=== PATIENT | female | born 1990 | race Caucasian/White ===

== ENCOUNTER 2018-05-21 09:05 | Inpatient (IN) | payer BC, OTHER ==
[2018-05-21] MEDS ORDERED: MEPIVACAINE HCL 1% MPF 30 ML/VIAL SOL INFIL PRN (15:14)
[2018-05-21] MEDS ORDERED: METHYLERGONOVINE MALEATE 0.2 MG/ML SOL IM PRN (15:14)
[2018-05-21] MEDS ORDERED: LACTATED RINGERS 1,000 ML IV PRN (15:14)
[2018-05-21] MEDS ORDERED: OXYTOCIN 10000 MU/ML SOL IM PRN (15:14)
[2018-05-21] MEDS ORDERED: FENTANYL 100MCG/2ML SOL IV PRN (15:14)
[2018-05-21] MEDS ORDERED: CARBOPROST 250 MCG/ML SOL IM PRN (15:14)
[2018-05-21] MEDS ORDERED: SODIUM CHLORIDE 0.9% FLUSH 10 ML SOL IV PRN (15:14)
[2018-05-21] MEDS: SODIUM CHLORIDE 0.9% FLUSH 10 ML SOL IV SCH ×2 (16:00→23:40)
[2018-05-21] MEDS ORDERED: SODIUM CHLORIDE 0.9% 50 ML 25 ML IV PRN (18:30)
[2018-05-21] MEDS ORDERED: AMPICILLIN 1 GM PDS 2 GM in SODIUM CHLORIDE 0.9% 100 ML 100 ML IV SCH (18:30)
[2018-05-21] MEDS ORDERED: AMPICILLIN 1 GM PDS ONE ×2 (18:30→22:41)
[2018-05-21 18:59] LABS: BASOPHILS % (AUTO) 1 % (0-3); EOSINOPHILS % (AUTO) 1 % (0-9); HEMATOCRIT 35 % (35-47); HEMOGLOBIN 12.2 gm/dl (12.0-15.5); LYMPHOCYTES % (AUTO) 18.7 % (10-50); MEAN CORPUSCULAR HEMOGLOBIN 30.2 pg (27.0-32.0); MEAN CORPUSCULAR HGB CONC 34.8 gm/dl (32.0-36.0); MEAN CORPUSCULAR VOLUME 87 fL (81-99); MONOCYTES % (AUTO) 7.7 % (0-12); NEUTROPHILS % (AUTO) 72.3 % (37-80)
[2018-05-21] MEDS: AMPICILLIN 1 GM PDS 1 GM in SODIUM CHLORIDE 0.9% 100 ML 100 ML IV SCH (22:49)
[2018-05-22] MEDS ORDERED: AMPICILLIN 1 GM PDS ONE ×4 (02:12→10:52)
[2018-05-22] MEDS: AMPICILLIN 1 GM PDS 1 GM in SODIUM CHLORIDE 0.9% 100 ML 100 ML IV SCH ×4 (02:45→19:42)
[2018-05-22] MEDS ORDERED: TERBUTALINE SULFATE 1 MG/ML SOL SC PRN (03:03)
[2018-05-22] MEDS ORDERED: OXYTOCIN 10000 MU/ML 20,000 MU in LACTATED RINGERS 1,000 ML IV SCH (03:15)
[2018-05-22] MEDS: LACTATED RINGERS 1,000 ML IV SCH ×4 (04:40→19:43)
[2018-05-22] MEDS ORDERED: EPHEDRINE SULFATE 50 MG/ML SOL IV PRN (09:13)
[2018-05-22] MEDS ORDERED: DIPHENHYDRAMINE 50 MG/ML SOL IV PRN (09:13)
[2018-05-22] MEDS ORDERED: NALBUPHINE HCL 20 MG/ML SOL IV PRN (09:13)
[2018-05-22] MEDS ORDERED: NALOXONE HYDROCHLORIDE 0.4 MG/ML SOL IV PRN (09:13)
[2018-05-22] MEDS ORDERED: BISACODYL 10 MG SUP PR PRN (12:02)
[2018-05-22] MEDS ORDERED: FLEET ENEMA PR PRN (12:02)
[2018-05-22] MEDS ORDERED: TEMAZEPAM 15MG 15 MG CAP PO PRN (12:02)
[2018-05-22] MEDS ORDERED: APAP/HYDROCODONE 1 EACH TABLET PO PRN (12:02)
[2018-05-22] MEDS ORDERED: BENZOCAINE/MENTHOL 1 SPR TOP PRN (12:02)
[2018-05-22] MEDS ORDERED: WITCH HAZEL 1 EA PAD TOP PRN (12:02)
[2018-05-22] MEDS ORDERED: METHYLERGONOVINE MALEATE 0.2 MG TAB PO PRN (12:02)
[2018-05-22 14:59] VITALS: RESP 16
[2018-05-22] MEDS: IBUPROFEN 600 MG TAB PO PRN (17:44)
[2018-05-22] MEDS: SODIUM CHLORIDE 0.9% FLUSH 10 ML SOL IV SCH (19:42)
[2018-05-22] MEDS: DOCUSATE SODIUM 100 MG SGL PO SCH (20:19)
[2018-05-23] MEDS: IBUPROFEN 600 MG TAB PO PRN ×2 (04:54→15:48)
[2018-05-23] MEDS: LACTATED RINGERS 1,000 ML IV SCH (05:06)
[2018-05-23] MEDS: DOCUSATE SODIUM 100 MG SGL PO SCH ×2 (09:02→20:55)
[2018-05-24] MEDS: DOCUSATE SODIUM 100 MG SGL PO SCH (08:27)
[2018-05-24 08:43] VITALS: BP 120/77; PULSE 80; TEMP 99.2; O2SAT 94
== END 2018-05-24 10:30 | disposition home or self-care (01) | DRG 560 ==
LOC: INTOOBSV 09:18 → OB 09:18 → UNDOADMOB 09:18 → OBSVTOIN 09:18 → OBOP 09:18 → EDSTATUS 14:43 → OB 17:54 → UNDODISIN 05-24 10:30
PROVIDERS: ADMIT Family Medicine; ATTEND Family Medicine
PROC: 10907ZC Drainage of Amniotic Fluid, Therapeutic from Products of Conception, Via Natural or Artificial Opening (ICD-10-PCS; principal; 2018-05-21)
PROC: 3E04329 Introduction of Other Anti-infective into Central Vein, Percutaneous Approach (ICD-10-PCS; 2018-05-21)
PROC: 10E0XZZ Delivery of Products of Conception, External Approach (ICD-10-PCS; 2018-05-22)
PROC: 0U7C7ZZ Dilation of Cervix, Via Natural or Artificial Opening (ICD-10-PCS; 2018-05-22)
PROC: 6A550ZT Pheresis of Cord Blood Stem Cells, Single (ICD-10-PCS; 2018-05-22)
DX: O99.824 Streptococcus B carrier state complicating childbirth (principal); Z3A.39 39 weeks gestation of pregnancy; O80 Encounter for full-term uncomplicated delivery; Z37.0 Single live birth
CPT/HCPCS: 36415; 59025; 85018; 85025; J0290; J0670; J2590; J3010; A9270-GY